=== PATIENT | male | born 1970 | race American Indian/Alaskan Native ===

== ENCOUNTER 2017-07-01 13:29 | Observation (INO) | payer OTHER ==
--- NOTE | 2017-07-01 14:42 | ED PDOC ---
HPI: Chest Pain Time Seen by Provider: 07/01/17 13:47 Chief Complaint (Nursing): Chest Pain History Per: Patient History/Exam Limitations: no limitations Onset/Duration Of Symptoms: Waxing/Waning, Gradual (3 days) Current Symptoms Are (Timing): Gone Now Severity: Mild Quality: Pressure Associated Symptoms: Dyspnea. denies: Nausea, Diaphoresis, Syncope Modifying Factors: None Exacerbating Factors: None Alleviating Factors: None Additional History Per: Patient Additional Complaint(s): patient found lying in parking garage stating he has left side chest pain. Medics released normal EKG. Patient was seen in an ED last week for same and all results normal at [facility]. Patient stating he has been under alot of stress and has been having panic/stress attacks. never been eval by cards, no recent stress test or cath. Past Medical History Reviewed: Historical Data, Nursing Documentation, Vital Signs Vital Signs: Last Vital Signs Temp 99 F 07/01/17 13:31 Pulse 98 H 07/01/17 13:31 Resp 18 07/01/17 13:31 BP 149/92 H 07/01/17 13:31 Pulse Ox 100 07/01/17 15:52 - Medical History PMH: No Chronic Diseases - Family History Family History: States: Unknown Family Hx - Living Arrangements Living Arrangements: With Family - Social History Current smoker - smoking cessation education provided: No Drugs: Denies - Allergies Allergies/Adverse Reactions: Allergies Allergy/AdvReac Type Severity Reaction Status Date / Time No Known Allergies Allergy Verified 07/01/17 13:31 Review of Systems ROS Statement: Except As Marked, All Systems Reviewed And Found Negative Constitutional: Negative for: Fever, Chills Cardiovascular: Negative for: Chest Pain, Palpitations Respiratory: Negative for: Cough, Shortness of Breath Gastrointestinal: Negative for: Nausea, Vomiting, Abdominal Pain Musculoskeletal: Negative for: Neck Pain Skin: Negative for: Rash Neurological: Negative for: Weakness, Numbness Physical Exam - Reviewed Nursing Documentation Reviewed: Yes Vital Signs Reviewed: Yes - Physical Exam Appears: Positive for: Well, No Acute Distress Head Exam: Positive for: ATRAUMATIC, NORMAL INSPECTION, NORMOCEPHALIC Eye Exam: Positive for: Normal appearance, EOMI, PERRL Neck: Positive for: Normal, Painless ROM, Supple Cardiovascular/Chest: Positive for: Regular Rate, Rhythm Respiratory: Positive for: Normal Breath Sounds. Negative for: Decreased Breath Sounds, Accessory Muscle Use, Crackles Gastrointestinal/Abdominal: Positive for: Normal Exam, Bowel Sounds, Soft. Negative for: Tenderness Back: Positive for: Normal Inspection. Negative for: L CVA Tenderness, R CVA Tenderness Extremity: Positive for: Normal ROM. 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 Negative for: Motor/Sensory Deficits - Laboratory Results Result Diagrams: 07/01/17 15:11 07/01/17 15:11 - ECG ECG: Positive for: Interpreted By Me ECG Rhythm: Positive for: Normal QRS, Normal ST Segment, Sinus Rhythm, ST/T Changes Interpretation Of Abn EKG: rate of 92, lad no st changes or twi O2 Sat by Pulse Oximetry: 100 Pulse Ox Interpretation: Normal - Radiology X-Ray: Interpreted by Me X-Ray Interpretation: No Acute Disease - Progress ED Course And Treament: pt has active cp here repeat ecg reveals a rate of 87, nsr, nml axis and interval no st changes or twi 4pm chest pain resolved with nitro, no ecg changes will admit to tele obs per hospitalist Re-evaluation Time: 15:51 Condition: Improved Disposition - Clinical Impression Clinical Impression: Chest pain - Patient ED Disposition Is Patient to be Admitted: Yes Counseled Patient/Family Regarding: Studies Performed, Diagnosis, Need For Followup - Disposition Disposition Time: 16:10 Condition: STABLE Forms: [facility] - Pt Status Changed To: Hospital Disposition Of: Observation - POA Present On Arrival: None
--- NOTE | 2017-07-01 15:18 | RAD ---
PROCEDURE: CHEST RADIOGRAPH, 1 VIEW HISTORY: cp COMPARISON: None available. FINDINGS: LUNGS: Clear. PLEURA: No pneumothorax or pleural fluid seen. CARDIOVASCULAR: Normal. OSSEOUS STRUCTURES: No significant abnormalities. VISUALIZED UPPER ABDOMEN: Normal. OTHER FINDINGS: None. IMPRESSION: No active disease.
[2017-07-01 15:20] LABS: BASO % 0.4 % (0.0-2.0); EOS % 0.1 % (0.0-4.0); HEMATOCRIT 46.4 % (35.0-51.0); LYMPH % 15.4 % (20.0-40.0); MEAN CELL VOLUME 92.5 fl (80.0-94.0); MEAN CORPUSCULAR HEMOGLOBIN 31.7 pg (27.0-31.0); MEAN CORPUSCULAR HGB CONC 34.2 g/dL (33.0-37.0); MEAN PLATELET VOLUME 7.3 fl (7.2-11.7); MONO # 0.6 K/uL (0.0-0.8); NEUT # 4.8 K/uL (1.8-7.0); NEUT % 74.1 % (50.0-75.0); NRBC % 0.2 % (0.0-0.0); WHITE BLOOD COUNT 6.5 K/uL (4.8-10.8)
[2017-07-01 15:34] LABS: PARTIAL THROMBOPLASTIN TIME 27.4 Seconds (25.6-37.1)
[2017-07-01 16:03] LABS: BLOOD UREA NITROGEN 12 mg/dl (9-20); GLUCOSE,RANDOM 108 mg/dL (75-110)
[2017-07-01 16:04] LABS: ALB/GLOB RATIO 1.2 (1.0-2.1); ALKALINE PHOSPHATASE 71 U/L (38-126); ALT/SGPT 31 U/L (21-72); AST/SGOT 27 U/L (17-59); BILIRUBIN,TOTAL 0.7 mg/dl (0.2-1.3); CALCIUM 11.9 mg/dL (8.4-10.2); CARBON DIOXIDE 23 mmol/L (22-30); CHLORIDE 105 mmol/L (98-107); GFR AFRICAN-AMERICAN > 60; MAGNESIUM 2.1 MG/DL (1.6-2.3); POTASSIUM 3.9 MMOL/L (3.6-5.0); SODIUM 140 mmol/l (132-148); TOTAL PROTEIN 8.3 G/DL (6.3-8.2)
[2017-07-01 16:16] LABS: LIPASE 35 U/L (23-300)
--- NOTE | 2017-07-01 18:15 | CP.PCM.HP ---
History of Present Illness - History of Present Illness History of Present Illness: 46 yo male with no significant PMH, came in complaining of left sided chest pain , non-radiating, described as dull and vague in character, since noon time. Claimed he had similar episode last week and was seen in [facility]. He was sent home with Xanax prescription after feeling better but never filled it. He denied SOB, nausea or vomiting. Patient has been working out lifting weights and never had any problem. He said he is under a lot of stress. Present on Admission - Present on Admission Any Indicators Present on Admission: No History of DVT/PE: No History of Uncontrolled Diabetes: No Urinary Catheter: No Decubitus Ulcer Present: No Review of Systems - Review of Systems All systems: reviewed and no additional remarkable complaints except (aside from those mentioned above, 12 point system review were negative by me) Past Patient History - Tetanus Immunizations Tetanus Immunization: Unknown - Past Medical History & Family History Past Medical History?: No Pertinent Family History: both parents have HTN; mother has DM2 - Past Social History Smoking Status: Never Smoked Alcohol: None Drugs: Denies - CARDIAC Hx Cardiac Disorders: No - PULMONARY Hx Respiratory Disorders: No - NEUROLOGICAL Hx Neurological Disorder: No - HEENT Hx HEENT Problems: No - RENAL Hx Chronic Kidney Disease: No - HEMATOLOGICAL/ONCOLOGICAL Hx Blood Disorders: No Hx Leukemia: No - INTEGUMENTARY Hx Dermatological Problems: No - MUSCULOSKELETAL/RHEUMATOLOGICAL Hx Musculoskeletal Disorders: No - GASTROINTESTINAL Hx Gastrointestinal Disorders: No - GENITOURINARY/GYNECOLOGICAL Hx Genitourinary Disorders: No - PSYCHIATRIC Hx Psychophysiologic Disorder: No Hx Substance Use: No - SURGICAL HISTORY Hx Surgeries: No - ANESTHESIA Hx Anesthesia: No Meds Allergies/Adverse Reactions: Allergies Allergy/AdvReac Type Severity Reaction Status Date / Time No Known Allergies Allergy Verified 07/01/17 13:31 Physical Exam - Constitutional Appears: No Acute Distress - Head Exam Head Exam: ATRAUMATIC - Eye Exam Eye Exam: absent: Scleral icterus - ENT Exam ENT Exam: Mucous Membranes Moist - Neck Exam Neck exam: Negative for: Meningismus - Respiratory Exam Respiratory Exam: absent: Rhonchi, Wheezes, Respiratory Distress - Cardiovascular Exam Cardiovascular Exam: REGULAR RHYTHM, +S1, +S2 - GI/Abdominal Exam GI & Abdominal Exam: Soft. absent: Tenderness - Rectal Exam Rectal Exam: Deferred - Extremities Exam Extremities exam: Negative for: calf tenderness, pedal edema - Back Exam Back exam: NORMAL INSPECTION - Neurological Exam Neurological exam: Alert, Oriented x3 - Psychiatric Exam Psychiatric exam: Normal Affect - Skin Skin Exam: Dry, Intact Results - Vital Signs Recent Vital Signs: Last Vital Signs Temp 99 F 07/01/17 13:31 Pulse 98 H 07/01/17 13:31 Resp 18 07/01/17 13:31 BP 149/92 H 07/01/17 13:31 Pulse Ox 100 07/01/17 16:53 - Labs Result Diagrams: 07/01/17 15:11 07/01/17 15:11 Labs: Laboratory Results - last 24 hr 07/01/17 07/01/17 07/01/17 15:11 15:11 15:11 WBC 6.5 RBC 5.02 Hgb 15.9 Hct 46.4 MCV 92.5 MCH 31.7 H MCHC 34.2 RDW 13.0 Plt Count 266 MPV 7.3 Neut % (Auto) 74.1 Lymph % (Auto) 15.4 L [place] % (Auto) 10.0 Eos % (Auto) 0.1 Baso % (Auto) 0.4 Neut # 4.8 Lymph # 1.0 [place] # 0.6 Eos # 0.0 Baso # 0.0 PT 12.6 INR 1.2 APTT 27.4 D-Dimer, Quantitative 59 Sodium 140 Potassium 3.9 Chloride 105 Carbon Dioxide 23 Anion Gap 16 BUN 12 Creatinine 1.4 Est GFR ( Amer) > 60 Est GFR (Non-Af Amer) 55 Random Glucose 108 Calcium 11.9 H Magnesium 2.1 Total Bilirubin 0.7 AST 27 ALT 31 Alkaline Phosphatase 71 Troponin I < 0.0120 NT-Pro-B Natriuret Pep < 11.1 Total Protein 8.3 H Albumin 4.6 Globulin 3.7 Albumin/Globulin Ratio 1.2 Lipase 35 Assessment & Plan (1) Chest pain Status: Acute Comment: place on observation in telemetry. serial Troponin and EKG. NTG SL prn for chest pain. Morphine 2mg IV q 4hrs prn for chest pain. ASA 81mg PO daily. lipid profile in am. Xanax 0.25mg PO TID prn (2) DVT prophylaxis Status: Acute Comment: Lovenox 40mg SC daily
[2017-07-01 23:50] VITALS: RESP 18; O2SAT 100
[2017-07-02 06:57] LABS: BASO % 0.3 % (0.0-2.0); EOS % 0.7 % (0.0-4.0); LYMPH % 24.3 % (20.0-40.0); MEAN CELL VOLUME 93.9 fl (80.0-94.0); MEAN CORPUSCULAR HEMOGLOBIN 31.5 pg (27.0-31.0); MEAN CORPUSCULAR HGB CONC 33.5 g/dL (33.0-37.0); MEAN PLATELET VOLUME 7.5 fl (7.2-11.7); MONO # 0.5 K/uL (0.0-0.8); MONO % 12.4 % (0.0-10.0); NEUT # 2.6 K/uL (1.8-7.0); NEUT % 62.3 % (50.0-75.0); NRBC % 0.1 % (0.0-0.0); RED CELL DISTRIBUTION WIDTH 13.2 % (11.5-14.5); WHITE BLOOD COUNT 4.1 K/uL (4.8-10.8)
[2017-07-02 07:05] LABS: BLOOD UREA NITROGEN 11 mg/dl (9-20); CALCIUM 11.2 mg/dL (8.4-10.2); CARBON DIOXIDE 24 mmol/L (22-30); CHLORIDE 106 mmol/L (98-107); GFR AFRICAN-AMERICAN > 60; GLUCOSE,RANDOM 96 mg/dL (75-110); POTASSIUM 4.1 MMOL/L (3.6-5.0); SODIUM 139 mmol/l (132-148)
[2017-07-02 08:39] VITALS: BP 116/73; PULSE 66; TEMP 98.5
[2017-07-02] MEDS ORDERED: Enoxaparin 40 mg Syringe SC SCH (09:00)
--- NOTE | 2017-07-02 12:15 | CP.PCM.DIS ---
Provider - Provider Date of Admission: 07/01/17 17:17 Attending physician: Bunny Garzon MD Time Spent in preparation of Discharge (in minutes): 25 Diagnosis - Discharge Diagnosis (1) Chest pain Status: Acute Comment: serial Troponins were negative. no recurrence of chest pain Hospital Course - Lab Results Lab Results: Most Recent Lab Values WBC 4.1 K/uL (4.8-10.8) L 07/02/17 05:00 RBC 4.90 Mil/uL (4.40-5.90) 07/02/17 05:00 Hgb 15.4 g/dL (12.0-18.0) 07/02/17 05:00 Hct 46.0 % (35.0-51.0) 07/02/17 05:00 MCV 93.9 fl (80.0-94.0) 07/02/17 05:00 MCH 31.5 pg (27.0-31.0) H 07/02/17 05:00 MCHC 33.5 g/dL (33.0-37.0) 07/02/17 05:00 RDW 13.2 % (11.5-14.5) 07/02/17 05:00 Plt Count 251 K/uL (130-400) 07/02/17 05:00 MPV 7.5 fl (7.2-11.7) 07/02/17 05:00 Neut % (Auto) 62.3 % (50.0-75.0) 07/02/17 05:00 Lymph % (Auto) 24.3 % (20.0-40.0) 07/02/17 05:00 [place] % (Auto) 12.4 % (0.0-10.0) H 07/02/17 05:00 Eos % (Auto) 0.7 % (0.0-4.0) 07/02/17 05:00 Baso % (Auto) 0.3 % (0.0-2.0) 07/02/17 05:00 Neut # 2.6 K/uL (1.8-7.0) 07/02/17 05:00 Lymph # 1.0 K/uL (1.0-4.3) 07/02/17 05:00 [place] # 0.5 K/uL (0.0-0.8) 07/02/17 05:00 Eos # 0.0 K/uL (0.0-0.7) 07/02/17 05:00 Baso # 0.0 K/uL (0.0-0.2) 07/02/17 05:00 PT 12.6 Seconds (9.8-13.1) 07/01/17 15:11 INR 1.2 (0.9-1.2) 07/01/17 15:11 APTT 27.4 Seconds (25.6-37.1) 07/01/17 15:11 D-Dimer, Quantitative 59 ng/mlDDU (0-230) 07/01/17 15:11 Sodium 139 mmol/l (132-148) 07/02/17 05:00 Potassium 4.1 MMOL/L (3.6-5.0) 07/02/17 05:00 Chloride 106 mmol/L (98-107) 07/02/17 05:00 Carbon Dioxide 24 mmol/L (22-30) 07/02/17 05:00 Anion Gap 14 (10-20) 07/02/17 05:00 BUN 11 mg/dl (9-20) 07/02/17 05:00 Creatinine 1.3 mg/dL (0.8-1.5) 07/02/17 05:00 Est GFR ( Amer) > 60 07/02/17 05:00 Est GFR (Non-Af Amer) 60 07/02/17 05:00 Random Glucose 96 mg/dL (75-110) 07/02/17 05:00 Calcium 11.2 mg/dL (8.4-10.2) H 07/02/17 05:00 Magnesium 2.1 MG/DL (1.6-2.3) 07/01/17 15:11 Total Bilirubin 0.7 mg/dl (0.2-1.3) 07/01/17 15:11 AST 27 U/L (17-59) 07/01/17 15:11 ALT 31 U/L (21-72) 07/01/17 15:11 Alkaline Phosphatase 71 U/L (38-126) 07/01/17 15:11 Troponin I < 0.0120 ng/mL (0.00-0.120) 07/02/17 09:15 NT-Pro-B Natriuret Pep < 11.1 pg/ml (0-450) 07/01/17 15:11 Total Protein 8.3 G/DL (6.3-8.2) H 07/01/17 15:11 Albumin 4.6 g/dL (3.5-5.0) 07/01/17 15:11 Globulin 3.7 gm/dL (2.2-3.9) 07/01/17 15:11 Albumin/Globulin Ratio 1.2 (1.0-2.1) 07/01/17 15:11 Lipase 35 U/L (23-300) 07/01/17 15:11 - Hospital Course Hospital Course: 46 yo male with no significant PMH, came in complaining of left sided chest pain , non-radiating, described as dull and vague in character, since noon time. Claimed he had similar episode last week and was seen in [facility]. He was sent home with Xanax prescription after feeling better but never filled it. He denied SOB, nausea or vomiting. Patient has been working out lifting weights and never had any problem. He said he is under a lot of stress. In the unit patient felt better and denied recurrence of chest pain. Serial Troponins were negative. Patient was discharged in stable condition Discharge Exam - Head Exam Head Exam: ATRAUMATIC - Eye Exam Eye Exam: absent: Scleral icterus - ENT Exam ENT Exam: Mucous Membranes Moist - Respiratory Exam Respiratory Exam: absent: Wheezes, Respiratory Distress - Cardiovascular Exam Cardiovascular Exam: REGULAR RHYTHM, +S1, +S2 - GI/Abdominal Exam GI & Abdominal Exam: Soft. absent: Tenderness - Rectal Exam Rectal Exam: Deferred - Back Exam Back exam: NORMAL INSPECTION - Neurological Exam Neurological exam: Alert, Oriented x3 - Psychiatric Exam Psychiatric exam: Normal Affect - Skin Skin Exam: Dry, Intact Discharge Plan - Follow Up Plan Condition: STABLE Disposition: HOME/ ROUTINE
--- NOTE | 2017-07-03 09:38 | CARD ---
APPROVED REPORT EKG Measurement Heart [id number] <Conclusion> Normal sinus rhythm Left anterior fascicular block Abnormal ECG
--- NOTE | 2017-07-03 09:40 | CARD ---
APPROVED REPORT EKG Measurement Heart [id number] <Conclusion> Normal sinus rhythm Left axis deviation Abnormal ECG
== END 2017-07-02 13:24 | disposition home or self-care (01) ==
LOC: H.ER 13:29 → H.ERHOLD 17:17 → H.TEL 20:25
DX: R07.9 Chest pain, unspecified (principal)
CPT/HCPCS: 36415; 71010; 80048; 80053; 83690; 83735; 83880; 84484; 85025; 85378; 85610; 85730; 96374; 99285; G0378; J1650; J2270